=== PATIENT | male | born 1975 | race Caucasian/White ===

== ENCOUNTER → 2021-11-19 13:34 | Outpatient (CLI) | payer OTHER, SELFPAY ==
--- NOTE | ~2021-11-19 | XR_ITS ---
XR cervical spine 4-5V DATE: 11/19/2021 14:06 INDICATION: Neck pain, left, radiating TECHNIQUE: AP, open-mouth, lateral, swimmer's and bilateral oblique views COMPARISON: None FINDINGS: There is straightening of the cervical spine. C1 and C2 are normally aligned and the odonto id process is intact. No fracture or dislocation or locked facet or prevertebral soft tissue swelling. Mild degenerative disc disease at C2-3, C3-4, C4-5 and moderate degenerative disease at C5-6 and C6-7 . There is uncovertebral joint spurring on the right at C3-4, C4-5 in particular, to a lesser extent on the right at C5-6 and C6-7. There is uncovertebral joint spurring on the left at C5-6 and C6-7. IMPRESSION: Straightening Multilevel degenerative disc disease, more prominent C5-6 and C6-7 Uncovertebral joint spurring at multiple levels Reviewed, dictated and finalized at location A.
== END ==
PROVIDERS: PCP Family Medicine
DX: M54.12 Radiculopathy, cervical region (principal); M50.322 Other cervical disc degeneration at C5-C6 level
CPT/HCPCS: 72050